=== PATIENT | male | born 1965 | race American Indian/Alaskan Native ===

== ENCOUNTER 2020-04-12 05:30 | Emergency (ER) | payer OTHER ==
[2020-04-12] MEDS ORDERED: levETIRAcetam 1000 MG/NS 0.75% 1,000 MG/100 ML BAG IV ONE (05:38)
--- NOTE | 2020-04-12 05:38 | Event Note ---
ED Screening Note Date of service: 04/12/20 Time: 05:36 ED Screening Note: Patient is a 55-year-old male that presents emergency room for altered mental status, possible seizure, right lower quadrant abdominal pain. Patient brought in by EMS. Report received from EMS. EMS states that the patient was postictal and slowly has become more oriented. Patient patient is now alert and oriented x3. Patient does not have a history of seizures. Patient was found in the bathroom by the family and the family called EMS. Patient states that the right lower quadrant abdominal pain months. This initial assessment/diagnostic orders/clinical plan/treatment(s) is/are subject to change based on patients health status, clinical progression and re- assessment by fellow clinical providers in the ED. Further treatment and workup at subsequent clinical providers discretion. Patient/guardian urged not to elope from the ED as their condition may be serious if not clinically assessed and managed. Initial orders include: Labs, CT. urine.
[2020-04-12 06:33] LABS: Basophils % (Auto) 0.2 % (0.0-1.8); Eosinophils # (Auto) 0.1 K/mm3 (0.0-0.4); Eosinophils % (Auto) 1.1 % (0.0-4.3); Hematocrit 43.3 % (35.5-45.6); Hemoglobin 14.5 gm/dl (11.8-15.2); Lymphocytes # (Auto) 0.8 K/mm3 (1.2-5.4); Lymphocytes % (Auto) 12.1 % (13.4-35.0); Mean Corpuscular HGB Conc 33 % (32-34); Mean Corpuscular Volume 95 fl (84-94); Monocytes % (Auto) 14.2 % (0.0-7.3); Platelet Count 199 K/mm3 (140-440); Red Blood Count 4.56 M/mm3 (3.65-5.03); Red Cell Distribution Width 12.9 % (13.2-15.2)
--- NOTE | 2020-04-12 06:43 | Emergency Department Report ---
HPI - General Chief Complaint: Altered Mental Status Time Seen by Provider: 04/12/20 05:36 - [facility] HPI: Room 38 The patient is a 55-year-old male present with a chief complaint of syncope and abdominal pain. The patient states he has pain in the right lower quadrant for over 1 year. Patient states he seen several physicians in the past about this pain but has not yet been given a diagnosis. The patient states some physicians believes it may be "nerve pain." This morning patient was in bed when he states he began to feel dizzy. He went to the bathroom where he began to feel the same pain in the right lower quadrant. The patient states he called out to his and then lost consciousness. The patient had been incontinent of stool per the . The patient states when he awakened he was surrounded by family and EMS on the bathroom floor. EMS reports the patient slowly became more alert and then oriented. Patient denies chest pain or shortness of breath. Patient states his only complaint currently is the pain in his right lower quadrant ED Past Medical Hx - Past Medical History Previous Medical History?: Yes Hx Hypertension: Yes - Surgical History Hx Appendectomy: Yes - Family History Family history: no significant - Social History Smoking Status: Never Smoker Substance Use Type: None (Denies illicit drug use) - Medications Home Medications: Home Medications Medication Instructions Recorded Confirmed Last Taken Type HYDROcodone/APAP 5-325 [[place] 1 - 2 each PO Q6HR PRN #10 tablet 04/12/20 Unknown Rx 5/325] Meclizine [Antivert] 25 mg PO TID PRN #20 tablet 04/12/20 Unknown Rx cloNIDine [Catapres] 0.1 mg PO 04/12/20 04/11/20 History hydroCHLOROthiazide [Hctz] 12.5 mg PO QDAY 04/12/20 04/12/20 Unknown History lisinopriL [Lisinopril] 20 mg PO 04/12/20 Unknown History ED Review of Systems ROS: Stated complaint: ALTERED MENTAL Other details as noted in HPI Constitutional: no symptoms reported Eyes: denies: eye pain ENT: denies: throat pain Respiratory: no symptoms reported Cardiovascular: denies: chest pain Endocrine: no symptoms reported Gastrointestinal: abdominal pain Genitourinary: denies: dysuria Musculoskeletal: arthralgia Neurological: denies: headache Physical Exam - Physical Exam Vital Signs: Vital Signs 04/12/20 04/12/20 04/12/20 05:40 05:48 05:51 Temperature 96.9 F L Pulse Rate 54 L 55 L Respiratory 14 16 16 Rate Blood Pressure 110/65 O2 Sat by Pulse 98 Oximetry 04/12/20 04/12/20 06:01 06:31 Temperature Pulse Rate 61 60 Respiratory 14 13 Rate Blood Pressure 110/65 124/70 O2 Sat by Pulse 95 99 Oximetry Physical Exam: GENERAL: The patient is well-developed well-nourished male lying on stretcher not appearing to be in acute distress. [] HEENT: Normocephalic. Atraumatic. Extraocular motions are intact. Patient has moist mucous membranes. NECK: Supple. No axial step-offs but pain towards mid cervical spine CHEST/LUNGS: Clear to auscultation. There is no respiratory distress noted. HEART/CARDIOVASCULAR: Regular. There is no tachycardia. There is no gallop rub or murmur. ABDOMEN: Abdomen is soft, nontender. Patient has normal bowel sounds. There is no abdominal distention. SKIN: There is no rash. There is no edema. There is no diaphoresis. NEURO: The patient is awake, alert, and oriented. The patient is cooperative. The patient has no focal neurologic deficits. The patient has normal speech. Cranial nerves II through XII grossly intact MUSCULOSKELETAL: There is no evidence of acute injury. ED Course Vital Signs 04/12/20 04/12/20 04/12/20 05:40 05:48 05:51 Temperature 96.9 F L Pulse Rate 54 L 55 L Respiratory 14 16 16 Rate Blood Pressure 110/65 O2 Sat by Pulse 98 Oximetry 04/12/20 04/12/20 06:01 06:31 Temperature Pulse Rate 61 60 Respiratory 14 13 Rate Blood Pressure 110/65 124/70 O2 Sat by Pulse 95 99 Oximetry ED Medical Decision Making - Lab Data Result diagrams: 04/12/20 05:50 04/12/20 05:50 Laboratory Tests 04/12/20 04/12/20 04/12/20 05:50 05:50 05:50 WBC 6.7 RBC 4.56 Hgb 14.5 Hct 43.3 MCV 95 H MCH 32 MCHC 33 RDW 12.9 L Plt Count 199 Lymph % (Auto) 12.1 L [place] % (Auto) 14.2 H Eos % (Auto) 1.1 Baso % (Auto) 0.2 Lymph # (Auto) 0.8 L [place] # (Auto) 1.0 H Eos # (Auto) 0.1 Baso # (Auto) 0.0 Seg Neutrophils % 72.4 H Seg Neutrophils # 4.9 Sodium 139 Potassium 4.0 Chloride 103.4 Carbon Dioxide 29 Anion Gap 11 BUN 22 H Creatinine 1.1 Estimated GFR > 60 BUN/Creatinine Ratio 20 Glucose 85 Calcium 9.5 Magnesium Total Bilirubin 0.40 AST 19 ALT 10 Alkaline Phosphatase 74 Total Creatine Kinase CK-MB (CK-2) CK-MB (CK-2) Rel Index Troponin T Total Protein 6.5 Albumin 4.2 Albumin/Globulin Ratio 1.8 Urine Bilirubin Urine RBC (Auto) Urine Opiates Screen Urine Methadone Screen Ur Barbiturates Screen Ur Phencyclidine Scrn Ur Amphetamines Screen U Benzodiazepines Scrn Urine Cocaine Screen U Marijuana (THC) Screen Plasma/Serum Alcohol < 0.01 04/12/20 04/12/20 04/12/20 05:50 08:51 08:51 WBC RBC Hgb Hct MCV MCH MCHC RDW Plt Count Lymph % (Auto) [place] % (Auto) Eos % (Auto) Baso % (Auto) Lymph # (Auto) [place] # (Auto) Eos # (Auto) Baso # (Auto) Seg Neutrophils % Seg Neutrophils # Sodium Potassium Chloride Carbon Dioxide Anion Gap BUN Creatinine Estimated GFR BUN/Creatinine Ratio Glucose Calcium Magnesium 2.10 Total Bilirubin AST ALT Alkaline Phosphatase Total Creatine Kinase 120 CK-MB (CK-2) 2.3 CK-MB (CK-2) Rel Index 1.9 Troponin T < 0.010 Total Protein Albumin Albumin/Globulin Ratio Urine Bilirubin Neg Urine RBC (Auto) 1.0 Urine Opiates Screen Negative Urine Methadone Screen Negative Ur Barbiturates Screen Negative Ur Phencyclidine Scrn Negative Ur Amphetamines Screen Negative U Benzodiazepines Scrn Negative Urine Cocaine Screen Negative U Marijuana (THC) Screen Negative Plasma/Serum Alcohol - EKG Data -: EKG Interpreted by Me EKG shows normal: sinus rhythm Rate: bradycardia (56 bpm) - EKG Data When compared to previous EKG there are: previous EKG unavailable Interpretation: other (Early repolarization) - Radiology Data Radiology results: report reviewed (CT head, CT cervical spine, CT abdomen pelvis), image reviewed (CT head, CT cervical spine, CT abdomen pelvis) [address] [address] Cat Scan Report Signed Patient: KENNETH SMITH MR#: [id number] : 1965 Acct:[id number] Age/Sex: 55 / M ADM Date: 04/12/20 Loc: ED Attending Dr: Ordering Physician: FIDE ZUNIGA III, MD Date of Service: 04/12/20 Procedure(s): CT head/brain wo con Accession Number(s): [id number] cc: FIDE ZUNIGA III, MD NONENHANCED CT SCAN OF THE HEAD: INDICATION / CLINICAL INFORMATION: 55 years Male; Seizure, Altered Mental Status. TECHNIQUE: Routine CT head without contrast. All CT scans at this location are performed using CT dose reduction for ALARA by means of automated exposure control. COMPARISON: None. FINDINGS: BRAIN / INTRACRANIAL CONTENTS: No acute hemorrhage, mass effect, midline shift, hydrocephalus, or acute, large territorial infarct. No chronic infarct or encephalomalacia. Contributing the age, central and the posterior central sulci on the right side are asymmetrically prominent. Periventricular and deep hemispheric white matter are normal normal temporal horn tips suggest normal medial temporal lobes; ophthalmic segment of left internal carotid artery appears prominent compared to the right side; both the M1 segments are normal. The remains CRANIOCERVICAL JUNCTION: No significant abnormality. ORBITS: No significant abnormality of visualized orbits. SINUSES / MASTOIDS: No significant abnormality of the visualized paranasal sinuses or mastoid air cells. A DDITIONAL FINDINGS: None. IMPRESSION: No acute focal parenchymal lesion; ophthalmic segment of left internal carotid artery is prominent without aneurysm Signer Name: Toni Leigh MD Signed: 04/12/2020 9:08 AM Workstation Name: [id number] Transcribed By: BS Dictated By: Toni Saucedo MD Electronically Authenticated By: Toni Saucedo MD Signed Date/Time: 04/12/20907 DD/ 6 TD/TT: [address] [address] Cat Scan Report Signed Patient: KENNETH SMITH MR#: [id number] : 1965 Acct:[id number] Age/Sex: 55 / M ADM Date: 04/12/20 Loc: ED Attending Dr: Ordering Physician: FLAQUITA HEARD MD Date of Service: 04/12/20 Procedure(s): CT cervical spine wo con Accession Number(s): [id number] cc: FLAQUITA HEARD MD CT cervical spine without contrast INDICATION: Pain after fall. TECHNIQUE: Axial imaging performed through the cervical spine without the use of contrast. Sag ittal and coronal reconstructed images were also reviewed. All CT scans at this location are performed using CT dose reduction for ALARA by means of automated exposure control. COMPARISON: None FINDINGS: Alignment: Spinal alignment is normal. Bones: There is no acute osseous abnormality. Mild multilevel discogenic DJD is present. Soft tissues: No acute or significant incidental soft tissue abnormality. IMPRESSION: No acute abnormality. Signer Name: William Jacobs MD Signed: 04/12/2020 9:00 AM Workstation Name: [id number] Transcribed By: JW Dictated By: William Jacobs MD Electronically Authenticated By: William Jacobs MD Signed Date/Time: 04/12/20 0900 DD/ 08 TD/TT: [facility] [address] [place] [address] Cat Scan Report Signed Patient: KENNETH SMITH MR#: [id number] : 1965 Acct:[id number] Age/Sex: 55 / M ADM Date: 04/12/20 Loc: ED Attending Dr: Ordering Physician: FIDE ZUNIGA III, MD Date of Service: 04/12/20 Procedure(s): CT abdomen pelvis w con Accession Number(s): [id number] cc: FIDE ZUNIGA III, MD CT ABDOMEN AND PELVIS WITH CONTRAST INDICATION / CLINICAL INFORMATION: R.L.Q. abdominal pain. TECHNIQUE: Axial CT images were obtained through the abdomen and pelvis after 100 cc Omni [address] scans at this location are performed using CT dose reduction for ALARA by means of automated exposure control. COMPARISON: None available. FINDINGS: LOWER CHEST: No significant abnormality. HEPATOBILIARY: Small, linear, irregular calcification in the medial left hepatic lobe, possibly granulomas. A few punctate hypodensities which are too small to definitively characterize, possible cysts. No significant biliary abnormality. PANCREAS/SPLEEN/ADRENALS: No significant abnormality. GENITOURINARY: No significant abnormality. GASTROINTESTINAL/MESENTERY: No bowel obstruction or inflammation. No evidence of acute appendicitis, although the appendix is not definitively visualized. No free air or significant free fluid. RETROPERITONEUM: No significant adenopathy. REPRODUCTIVE ORGANS: No significant abnormality. VASCULAR: Mild atherosclerotic calcification without acute abnormality. BODY WALL: No significant abnormality. SKELETAL SYSTEM: No significant abnormality. IMPRESSION: 1. No acute abdominopelvic abnormality. 2. A few hepatic hypodensities which are too small to definitely characterize, possible cysts. Signer Name: Kelsie Marks MD Signed: 04/12/2020 9:06 AM Workstation Name: [id number] Transcribed By: Dictated By: KELSIE MARKS III Electronically Authenticated By: KELSIE MARKS III Signed Date/Time: 04/12/20905 DD/ 7 TD/TT: - Differential Diagnosis Vasovagal syncope, renal colic, ICH, seizures Critical care attestation.: If time is entered above; I have spent that time in minutes in the direct care of this critically ill patient, excluding procedure time. ED Disposition Clinical Impression: Vasovagal syncope, Vertigo, Abdominal pain Disposition: - TO HOME OR SELFCARE Is pt being admited?: No Does the pt Need Aspirin: No Condition: Stable Instructions: Syncope (ED), Abdominal Pain, Adult, [id number], Syncope, [id number], Seizure, Adult, [id number] Additional Instructions: It is important that she follow-up with a neurologist for further evaluation. Return to the emergency department should you develop worsening symptoms, i nability to tolerate food or liquids, high fever or any other concerns Prescriptions: Meclizine [Antivert] 25 mg PO TID PRN #20 tablet PRN Reason: Vertigo HYDROcodone/APAP 5-325 [[place] 5/325] 1 - 2 each PO Q6HR PRN #10 tablet PRN Reason: Pain Referrals: ROYER KNAPP MD [Staff Physician] - [place] (Dr. Knapp is a neurologist. Please follow-up with him for further evaluation) ARIAS MCKEON MD [Staff Physician] - 3-5 Days (Dr. Mckeon is a gastro enterologist. Please follow-up with him for further evaluation of your abdominal pain) Time of Disposition: 10:06
[2020-04-12 06:49] LABS: Albumin 4.2 g/dL (3.9-5)
[2020-04-12 07:02] LABS: BUN/Creatinine Ratio 20; Blood Urea Nitrogen 22 mg/dL (9-20); Calcium 9.5 mg/dL (8.4-10.2); Hemolysis Index 5
[2020-04-12 07:04] LABS: Creatine Kinase MB 2.3 ng/mL (0.0-4.0)
[2020-04-12 08:38] LABS: Alanine Aminotransferase 10 units/L (7-56)
[2020-04-12 08:59] LABS: Bilirubin,Urine NEG (Negative); Blood,Urine NEG (Negative); Color,Urine Amber (Yellow); Protein,Urine <15 mg/dL mg/dL (Negative); WBC,Urine < 1.0 /HPF (0.0-6.0)
[2020-04-12] MEDS ORDERED: fentaNYL 100 MCG/2 ML INJ IV ONE (09:00)
[2020-04-12] MEDS ORDERED: ONDANSETRON 4 MG/2 ML INJ IV ONE (09:00)
--- NOTE | 2020-04-12 09:04 | Cat Scan Report ---
CT cervical spine without contrast INDICATION: Pain after fall. TECHNIQUE: Axial imaging performed through the cervical spine without the use of contrast. Sagittal and coronal reconstructed images were also reviewed. All CT scans at this location are performed us ing CT dose reduction for ALARA by means of automated exposure control. COMPARISON: None FINDINGS: Alignment: Spinal alignment is normal. Bones: There is no acute osseous abnormality. Mild multilevel discogenic DJD is present. Soft tissues: No acute or significant incidental soft tissue abnormality. IMPRESSION: No acute abnormality. Signer Name: William Jacobs MD Signed: 04/12/2020 9:00 AM Workstation Name: [id number]
[2020-04-12 09:10] LABS: Amphetamine Screen,Urine Negative; Benzodiazepines Screen,Urine Negative; Cannabinoid Screen,Urine Negative; Cocaine Screen,Urine Negative; Methadone Screen,Urine Negative; Opiate Screen,Urine Negative
--- NOTE | 2020-04-12 09:11 | Cat Scan Report ---
CT ABDOMEN AND PELVIS WITH CONTRAST INDICATION / CLINICAL INFORMATION: R.L.Q. abdominal pain. TECHNIQUE: Axial CT images were obtained through the abdomen and pelvis after 100 cc Omni [address] scans at this location are performed using CT dose reduction for ALARA by means of automated expos ure control. COMPARISON: None available. FINDINGS: LOWER CHEST: No significant abnormality. HEPATOBILIARY: Small, linear, irregular calcification in the medial left hepatic lobe, possibly granu jasmyn. A few punctate hypodensities which are too small to definitively characterize, possible cysts. No significant biliary abnormality. PANCREAS/SPLEEN/ADRENALS: No significant abnormality. GENITOURINARY: No significant abnormality. GASTROINTESTINAL/MESENTERY: No bowel obstruction or inflammation. No evidence of acute appendicitis, although the appendix is not definitively visualized. No free air or significant free fluid. RETROPERITONEUM: No significant adenopathy. REPRODUCTIVE ORGANS: No significant abnormality. VASCULAR: Mild atherosclerotic calcification without acute abnormality. BODY WALL: No significant abnormality. SKELETAL SYSTEM: No significant abnormality. IMPRESSION: 1. No acute abdominopelvic abnormality. 2. A few hepatic hypodensities which are too small to definitely characterize, possible cysts. Signer Name: Eladio Marks MD Signed: 04/12/2020 9:06 AM Workstation Name: [id number]
--- NOTE | 2020-04-12 09:12 | Cat Scan Report ---
NONENHANCED CT SCAN OF THE HEAD: INDICATION / CLINICAL INFORMATION: 55 years Male; Seizure, Altered Mental Status. TECHNIQUE: Routine CT head without contrast. All CT scans at this location are performed using CT dos e reduction for ALARA by means of automated exposure control. COMPARISON: None. FINDINGS: BRAIN / INTRACRANIAL CONTENTS: No acute hemorrhage, mass effect, midline shift, hydrocephalus, or acu te, large territorial infarct. No chronic infarct or encephalomalacia. Contributing the age, central and the posterior central sulci on the right side are asymmetrically prominent. Periventricular and d eep hemispheric white matter are normal normal temporal horn tips suggest normal medial temporal lobe s; ophthalmic segment of left internal carotid artery appears prominent compared to the right side; b oth the M1 segments are normal. The remains CRANIOCERVICAL JUNCTION: No significant abnormality. ORBITS: No significant abnormality of visualized orbits. SINUSES / MASTOIDS: No significant abnormality of the visualized paranasal sinuses or mastoid air crystal ls. ADDITIONAL FINDINGS: None. IMPRESSION: No acute focal parenchymal lesion; ophthalmic segment of left internal carotid artery is prominent w ithout aneurysm Signer Name: Toni Leigh MD Signed: 04/12/2020 9:08 AM Workstation Name: [id number]
[2020-04-12] MEDS ORDERED: MECLIZINE 25 MG TAB PO ONE (09:22)
[2020-04-12] MEDS ORDERED: SODIUM CHLORIDE 0.9% 1000 ML 1,000 ML IV ONE (09:22)
[2020-04-12 10:41] VITALS: BP 101/58
== END 2020-04-12 10:53 | disposition home or self-care (01) ==
LOC: ED 05:30
DX: R55 Syncope and collapse (principal); R42 Dizziness and giddiness; R10.31 Right lower quadrant pain; I10 Essential (primary) hypertension; Z90.49 Acquired absence of other specified parts of digestive tract; Z79.899 Other long term (current) drug therapy
CPT/HCPCS: 36415; 70450; 72125; 74177; 80053; 80307; 81001; 82550; 82553; 83735; 84484; 85025; 93005; 96361; 96374; 96375; 99284; J1953; J2405; J3010; J7030; Q9967; 80320; G0480

== ENCOUNTER 2020-11-13 23:28 | Emergency (ER) | payer OTHER | END 2020-11-14 01:30 | disposition left against medical advice (07) | LOC: ED 23:28 | DX: M79.10 Myalgia, unspecified site (principal); Z53.21 Procedure and treatment not carried out due to patient leaving prior to being seen by health care provider ==